=== PATIENT | male | born 1950 | race Caucasian/White ===

== ENCOUNTER → 2016-12-01 | Outpatient (CLI) | payer MEDICARE ==
--- NOTE | ~2016-12-01 | CT16 ---
[facility] A Service of [facility] & [facility] RADIOLOGY TEXT RESULTS PATIENT: MARTY JOYNER LOCATION: [facility] : 52 UNIT #: [id number] AGE: [address]: Yvette Abbott SEX: M ORDER DR: [id number] [address] [address] [id number] O MR#: [id number] Acc #: [id number] NAME: MARTY JOYNER : 1950 SEX: M STUDY DATE/TIME: 12/01/2016 UNIT: [facility] ROOM: STUDY DESCRIPTION: CT Angio Chest for PE Attending Physician: Yvette Abbott A.P.R.N. Referring Physician: Yvette Abbott A.P.R.N. Ordering Physician: Yvette Abbott A.P.R.N. Primary Care Physician: Tootie Jimenez M.D. MEDICAL IMAGING REPORT This report is preliminary unless electronic signature is present. EXAM CT angiogram of the chest for pulmonary embolism 12/01/2016 1154 hours HISTORY 66-year-old man complaining of shortness of air x 1.5 months. History of shoulder surgery [address] chest 11/01/2016. TECHNIQUE Dynamic helical CT angiographic images were obtained from the thoracic inlet through the upper abdomen. 3-D sagittal and coronal reconstructions were performed. Contrast was Isovue-370 80 mL IV. Total exam DLP 39 mGy/cm. This CT exam was performed with one or more of the following radiation dose reduction techniques: automatic exposure control, adjustment of mA and/or kV according to patient size, and iterative reconstruction. FINDINGS Images through the thoracic inlet demonstrate a nodule lower perimeter lobe and midline thyroid unchanged. This appears benign. Images through the chest demonstrate diagnostic quality opacification of the pulmonary arteries which are within normal limits for size. There are no filling defects present to suggest the presence of pulmonary emboli. The aorta is only mildly opacified with contrast. There is no dissection or aneurysm. Cardiac chambers and pericardium are normal. The esophagus is normal. There are stable, densely calcified right paratracheal and right hilar lymph nodes. There are fairly bulky bilateral noncalcified nodes, as was [facility] A Service of [facility] & [facility] RADIOLOGY TEXT RESULTS PATIENT: MARTY JOYNER LOCATION: [facility] : 52 UNIT #: [id number] AGE: [address]: Yvette Abbott SEX: M ORDER DR: described previously. These are clustered in the aorticopulmonary window, hilar and subcarinal areas. They are similar to prior CT from 11/01/2016. The right-sided subcarinal lymph node measures 4.6 x 2.6 cm, previously 4.5 x 2.7 cm by my measurement. Left subcarinal lymph node measures 3.3 x 2.5 cm, previously 3.3 x 1.8 cm at a similar level. Example node in the aorticopulmonary window measures 2.1 x 1.4 cm, previously 1.8 x 1.3 cm. Cluster of nodes abutting the left aspect of the distal trachea is unchanged. There are enlarged bilateral hilar and infrahilar nodes, largest on the right measuring 4.4 x 2.6 cm. This is felt stable to slightly increased, although difficult to measure on the prior study given the lack of contrast on that exam. There is no axillary adenopathy and no pathologic adenopathy in the upper abdomen. The spleen is normal in size. Lung window images demonstrate underlying emphysematous change as well as coarse reticular interstitial changes in the periphery of the lungs bilaterally, in the upper lobes and lower lobes without predominance. These interstitial changes are nonspecific but felt stable from 11/01/2016. Sarcoidosis would be favored over other infectious etiologies. Limited views through the upper abdomen demonstrate no focal liver or splenic lesion. The adrenal glands are normal. There is a low-density lesion in the medial upper pole right kidney, most consistent with a cyst. IMPRESSION 1. There is no evidence of pulmonary embolism. 2. There is pathologic mediastinal, bilateral hilar and subcarinal lymphadenopathy with densely calcified right paratracheal nodes. These nodes are stable to slightly increased from 11/01/[address] There is persistent coarse interstitial change in both lungs upper and lower lungs without predominance and pattern of distribution. These parenchymal changes are similar to 11/01/2016. The findings are nonspecific but sarcoidosis would be favored. Other entities, including lymphoma or atypical infection, could have this appearance. 3. Limited views through the upper abdomen demonstrate no lymphadenopathy or splenomegaly. 4. Right upper pole renal cyst, unchanged. NOTE A preliminary report of no pulmonary embolism was telephoned to the CT techs to communicate to the ordering physician on this STAT study at 1229 hours. Interpretation was delayed until at 02:15 p.m. when the actual outside films could be obtained to compare both the lymphadenopathy in the lung lesions, resulting in the delay in interpretation of this stat exam which I felt was clinically most useful. Dictated by... [facility] A Service of [facility] RADIOLOGY TEXT RESULTS PATIENT: MARTY JOYNER LOCATION: [facility] #: [id number] : 52 UNIT #: [id number] AGE: [address]: Yvette Abbott SEX: M ORDER DR: Poornima Wallace M.D. THIS IS AN ELECTRONICALLY VERIFIED REPORT Poornima Wallace M.D. at 12/02/2016 9:28 AM BETY/moris TD: 12/01/2016 15:21 JOB #: [id number] MEDICAL IMAGING REPORT Page 1 of 1
[2016-12-01 12:00] LABS: POC - CREATININE 1.36 mg/dL (0.64-1.27)
== END | disposition home or self-care (01) ==
LOC: CCAT 11:00 → SCT 11:28 → CCAT 14:00
PROVIDERS: Nurse Practitioner Adult Health
DX: R06.02 Shortness of breath (principal); R93.8 Abnormal findings on diagnostic imaging of other specified body structures; R59.0 Localized enlarged lymph nodes; N28.1 Cyst of kidney, acquired
CPT/HCPCS: 71275; 82565; Q9967